=== PATIENT | female | born 1940 | race Caucasian/White ===

== ENCOUNTER 2016-12-26 15:56 | Emergency (ER) | payer MEDICARE, OTHER ==
--- NOTE | 2016-12-26 17:39 | UC ---
Head Injury HPI - HPI Summary HPI Summary: "Pain around nose, bruising around right eye greater than left, facial bruising onset 12/24/16 s/p fall. No LOC. Pt had been bending over then may have gotten up quickly before the fall. Cloudy vision after fall is improving." She is here with her 2 dtrs Neda and john. They note that she does have mild dementia. Incident occurred after walking down [place] sloped [place] and got the mail. she does not recall the incident or falling. She denies LOC. She stood up and was "wobbly" for a while adn then came back in. She does not recall if she braced herself with the fall with her arms. She was able to get the bloody nose to stop. she took some sort of OTC pain meds but does not recall what, but wished she had something stronger. Doesn't know why her eye is red (referring to the bruising). Denies pain now. Lives home with her . - History Of Current Complaint Chief Complaint: UCHeadInjury Stated Complaint: FACIAL INJURY/FALL () Time Seen by Provider: 12/26/16 17:24 - Allergies/Home Medications Allergies/Adverse Reactions: Allergies Allergy/AdvReac Type Severity Reaction Status Date / Time No Known Allergies Allergy Verified 12/26/16 17:19 Home Medications: Home Medications Alendronate Sodium [Fosamax-] 70 mg PO WEEKLY 12/26/16 [History Confirmed ] Folic Acid TAB* [Folvite TAB*] 1 mg PO DAILY 12/26/16 [History Confirmed ] Methotrexate Sodium 0.5 ml IJ WEEKLY 12/26/16 [History Confirmed 12/26/16] Multivitamins/Minerals TAB* [Thera M Plus TAB*] 1 tab PO DAILY 12/26/16 [ History Confirmed 12/26/16] Nutritional Supplements [Vitamin D Booster Therapy Pack] 1 chris PO SEE INSTRUCTIONS 12/26/16 [History Confirmed 12/26/16] See Med List 11/25/16 12/26/16 [History] Simvastatin [Zocor 40 MG (NF)] 40 mg PO QPM 12/26/16 [History Confirmed 12/26/16 ] PMH/Surg Hx/FS Hx/Imm Hx Previously Healthy: Yes - Surgical History Surgical History: Yes Surgery Procedure, Year, and Place: left breast, cataracts, right carpal tunnel - Family History Known Family History: Negative: Cardiac Disease, Diabetes - Social History Alcohol Use: Rare Substance Use Type: None Smoking Status (MU): Former Smoker Review of Systems Constitutional: Negative Skin: Bruising Eyes: Blurred Vision ENT: Negative Respiratory: Negative Cardiovascular: Negative Gastrointestinal: Negative Genitourinary: Negative Motor: Negative Neurovascular: Negative Musculoskeletal: Negative Neurological: Other - confusion, not changed from baseline per dtrs. Psychological: Negative All Other Systems Reviewed And Are Negative: Yes Physical Exam Triage Information Reviewed: Yes Completion Of Physical Exam Limited Due To: Dementia - mild, she keeps asking questions about the plan even though it has been explained several times. very pleasant. Appearance: Well-Appearing, No Pain Distress, Well-Nourished Vital Signs: Initial Vital Signs Temp 99.9 F 12/26/16 16:59 Pulse 55 12/26/16 16:59 Resp 18 12/26/16 16:59 BP 159/57 12/26/16 16:59 Pulse Ox 100 12/26/16 16:59 Vital Signs Reviewed: Yes Eye Exam: Normal Eyes: Positive: Other: - bruising over right eyelid and right cheek. ENT Exam: Normal ENT: Positive: Normal ENT inspection, Hearing grossly normal, Pharynx normal, TMs normal. Negative: Nasal congestion Neck exam: Normal Neck: Positive: Supple, Nontender, No Lymphadenopathy Respiratory Exam: Normal Respiratory: Positive: Chest non-tender, Lungs clear, Normal breath sounds, No respiratory distress, No accessory muscle use Cardiovascular Exam: Normal Cardiovascular: Positive: RRR, No Murmur, Pulses Normal, Brisk Capillary Refill Abdominal Exam: Normal Abdomen Description: Positive: Nontender, Soft Bowel Sounds: Positive: Present Musculoskeletal Exam: Normal Neurological Exam: Normal Psychological Exam: Normal Psychological: Positive: Normal Response To Family Skin: Positive: Other - bruising right face Head Injury Course/Dx - Course Course Of Treatment: Needs CT facial bones and head for fall and facial trauma. Pt and 2 dtrs are very agreeable. Possible mental status changes. - Differential Dx/Diagnosis Differential Diagnosis/HQI/PQRI: Concussion Without LOC, Contusion, Hematoma, Intracranial Bleed, Nasal Fracture, Orbital Fracture, Skull Fracture, Zygomatic Fracture Provider Diagnoses: head trauma, ecchymosis face - Physician Notification/Consults Discussed Patient Care With: Louisa Jack NP [facility]. Pt and family prefer [facility] d/t proximity to home. Time Discussed With Above Provider: 16:00 Discharge - Discharge Plan Condition: Fair Disposition: AGAINST MEDICAL ADVICE
== END 2016-12-26 18:15 | disposition left against medical advice (07) ==
LOC: UCCORT 15:56
DX: S09.90XA Unspecified injury of head, initial encounter (principal); S00.83XA Contusion of other part of head, initial encounter; W18.30XA Fall on same level, unspecified, initial encounter; Y93.89 Activity, other specified; Y92.9 Unspecified place or not applicable; R07.89 Other chest pain; F03.90 Unspecified dementia, unspecified severity, without behavioral disturbance, psychotic disturbance, mood disturbance, and anxiety; Z98.49 Cataract extraction status, unspecified eye; Z87.891 Personal history of nicotine dependence
CPT/HCPCS: 93005; 99202; G0463